=== PATIENT | female | born 1965 | race African-American/Black ===

== ENCOUNTER 2019-06-11 19:37 | Inpatient (IN) | payer MEDICARE, MEDICAID ==
[~2019-06-11] VITALS: Ht 157.5 cm; Wt 109.5 kg
[2019-06-11 20:52] LABS: Basophils # (auto) 0 uL; Basophils % (auto) 0.6 % (0.0-2.0); Eosinophils # (auto) 0.1 uL; Eosinophils % (auto) 1.3 % (0.0-7.0); Hematocrit 35.3 % (36.0-46.0); Hemoglobin 11.5 g/dL (12.2-16.2); Lymphocytes # (auto) 2.1 uL; Lymphocytes % (auto) 28.3 % (10.0-50.0); Mean Corpuscular Hemoglobin 25.6 pg (28.0-32.0); Mean Corpuscular Hgb Conc. 32.7 g/dL (32.0-36.0); Mean Corpuscular Volume 78.5 fL (80.0-100.0); Monocytes # (auto) 0.7 uL; Monocytes % (auto) 9.6 % (0.0-12.0); Neutrophils # (auto) 4.5 uL; Neutrophils % (auto) 60.2 % (37.0-80.0); Nucleated Red Blood Cells % 0.2 %; Platelet Count (auto) 366 10^3/uL (140-450); Red Cell Distribution Width 15.4 % (11.8-14.3); White Blood Cell 7.4 10^3/uL (4.4-10.8)
[2019-06-11 21:10] LABS: Albumin 3.2 g/dL (3.4-5.0); BUN/Creatinine Ratio 12.9; Calcium 8.5 mg/dL (8.5-10.1); Magnesium 2.1 mg/dL (1.6-2.6); Potassium 3.6 mmol/L (3.5-5.1)
[2019-06-11 21:13] LABS: Bilirubin, Total 0.2 mg/dL (0.2-1.0); Total Protein 7.9 g/dL (6.4-8.2)
[2019-06-11] MEDS ORDERED: ACETAMINOPHEN 500 MG TAB PO ONE (23:45)
[2019-06-12] VITALS (7 sets, daily range): BP systolic 116–136; BP diastolic 68–77
[2019-06-12] MEDS ORDERED: LORazepam 2MG/ML-1ML VIAL IV PRN ×2 (00:45→21:45)
[2019-06-12] MEDS ORDERED: ONDANSETRON HCL 4 MG/2 ML VIAL IV PRN (00:45)
[2019-06-12] MEDS ORDERED: TEMAZEPAM 15 MG CAP PO PRN (00:45)
[2019-06-12] MEDS ORDERED: ACETAMINOPHEN 325 MG TAB PO PRN (00:45)
--- NOTE | 2019-06-12 04:00 | NUR ---
MS admit from ER SCOOTER JAIMES admitted to tele/MS after SBAR received. Patient alert/oriented to self at this time, cooperative to care. Patient oriented to Laura Curtis RN primary RN, unit, room, bed, and unit policies regarding patient care and visiting hours. Patient weighed by bedscale and encouraged to call if they need something, patient verbalized understanding, call light within reach, bed alarm on, will continue to monitor Note:
[2019-06-12] MEDS ORDERED: INFLUENZA QUAD 2019-2020 0.5ml SYRG IM ONE (04:45)
[2019-06-12] MEDS: LEVOTHYROXINE SODIUM 50 MCG TAB PO SCH ×2 (05:59→07:00)
--- NOTE | 2019-06-12 08:20 | NUR ---
Opening Note Assumed care of patient. She is A & O x 1-2, patient is oriented to self and that it is daytime. Per H & P this is patient baseline. Patient is cooperative, POC discussed with patient. Patient is comfortable at this time. No s/s of distress at this time. Bed is in lowest locked position call light within reach, bed rails up x2, bed alarm on. Will continue to monitor Q1h and PRN.
[2019-06-12] MEDS: PANTOPRAZOLE 40 MG TAB PO SCH (09:51)
[2019-06-12] MEDS: HCTZ 25 MG TAB PO SCH (09:51)
[2019-06-12] MEDS: ENOXAPARIN SOD 30 MG/0.3 ML SYRINGE SC SCH (09:52)
[2019-06-12] MEDS ORDERED: FUROSEMIDE 20 MG TAB PO SCH (10:00)
[2019-06-12] MEDS ORDERED: cefTRIAXone 1GM/50ML D5W 50 ML IV ONE (10:45)
--- NOTE | 2019-06-12 11:00 | NUR ---
Patient bedding soiled Patient had a moment of incontinence. Oriented patient to call light to use a bed gold, she states "okay I will call." Bedding changed, patient cleaned, tolerated well.
[2019-06-12 12:35] LABS: Free T4 (Free Thyroxine) 0.99 ng/dL (0.89-1.76)
[2019-06-12 12:36] LABS: Folate (Folic Acid) 13.09 ng/mL (5.38-24)
--- NOTE | 2019-06-12 15:00 | NUR ---
Patient removed her IV to the left hand. Patient states "it was bothering me." This RN educated patient that she should not pull out her IV, we will have to place a new one. No bleeding at this time. Dressing applied. Will continue to monitor.
--- NOTE | 2019-06-12 15:30 | NUR ---
Patient bedding soiled. Patient had a moment of incontinence, patient reoriented to call light, this RN asked patient "do you know when you have to pee?", patient states "yes." Will continue to monitor, patient cleaned, bedding changed, patient had a small bowel movement.
[2019-06-12 17:37] LABS: Urine Bacteria FEW /hpf (None Seen); Urine Blood TRACE /uL (Negative); Urine Mucus FEW (None Seen); Urine Specific Gravity 1.012 (1.001-1.035); Urine WBC 23 /hpf (0 - 5)
--- NOTE | 2019-06-12 19:30 | NUR ---
Opening Shift Note Assumed care of patient, awake and alert to self and place. Patient reoriented to year and situation, reinforcement needed. Patient denies pain or shortness of breath at this time. Instructed on plan of care and to call for assistance as needed, reinforcement needed. Bed is locked in lowest position, side rails x 2 are up, call light is within reach, and bed alarm is on.
--- NOTE | 2019-06-12 22:35 | NUR ---
SEIZURE LIKE ACTIVITY While cleaning patient with assistance of RN Nan, patients eyes and head deviated to the right, right arm extended and left arm flexed towards patients chest. Patient was in this position for approximately 30 seconds, no Ativan was needed. Patient returned to baseline following event. Patient is alert and oriented x2. Patient easily reoriented to year and situation, reinforcement needed. Patients vital signs following this event were the following: BP: 140/71, HR: 75, RR: 18, SPO2: 98% on 2L NC, and TEMP: 98.1. Patient is now laying in bed with even and unlabored respirations. No signs/symptoms of distress noted at this time. Bed is locked in lowest position, side rails x2 are up, call light is within reach, bed alarm is on, and seizure precautions are in place.
--- NOTE | 2019-06-12 23:10 | NUR ---
ATTEMPTED BAZAN CATHETER INSERTION Patient assessed and determined to be in need of Bazan catheter. Order obtained from Dr. Arroyo to insert Bazan catheter. Patient educated on catheter and reason for insertion, patient verbalized understanding and all questions and concerns were answered. Attempted to insert Bazan catheter twice with assistance of [employer] [place] and [employer] [place]. Both attempts were failed attempts. After second attempt patient refused Bazan catheter insertion.
[2019-06-12] MEDS: LEVETIRACETAM 500 MG TAB PO SCH (23:28)
[2019-06-13 05:00] VITALS: BP 125/75
[2019-06-13] MEDS: LEVOTHYROXINE SODIUM 50 MCG TAB PO SCH (06:14)
[2019-06-13 08:18] LABS: BUN/Creatinine Ratio 15.2; Calcium 8.5 mg/dL (8.5-10.1); Magnesium 2.2 mg/dL (1.6-2.6); Potassium 3.8 mmol/L (3.5-5.1)
[2019-06-13 08:21] LABS: Bilirubin, Total 0.2 mg/dL (0.2-1.0); Total Protein 7.4 g/dL (6.4-8.2)
[2019-06-13 09:00] VITALS: BP 110/69
[2019-06-13] MEDS ORDERED: cefTRIAXone 1GM/50ML D5W 50 ML IV SCH (09:00)
[2019-06-13 09:13] LABS: Basophils # (auto) 0 uL; Eosinophils # (auto) 0.1 uL; Hemoglobin 11.4 g/dL (12.2-16.2); Monocytes # (auto) 0.5 uL; Neutrophils # (auto) 2.8 uL; Neutrophils % (auto) 51.5 % (37.0-80.0); Red Cell Distribution Width 15.5 % (11.8-14.3)
[2019-06-13 09:15] LABS: Basophils % (auto) 0.7 % (0.0-2.0); Eosinophils % (auto) 1.8 % (0.0-7.0); Hematocrit 33.8 % (36.0-46.0); Lymphocytes % (auto) 36.3 % (10.0-50.0); Mean Corpuscular Hemoglobin 26.2 pg (28.0-32.0); Mean Corpuscular Hgb Conc. 33.7 g/dL (32.0-36.0); Mean Corpuscular Volume 77.8 fL (80.0-100.0); Monocytes % (auto) 9.7 % (0.0-12.0); Nucleated Red Blood Cells % 0.2 %; Platelet Count (auto) 348 10^3/uL (140-450); Red Blood Cells 4.34 10^6/uL (4.0-5.20); White Blood Cell 5.4 10^3/uL (4.4-10.8)
[2019-06-13] MEDS: HCTZ 25 MG TAB PO SCH (10:18)
[2019-06-13] MEDS: LEVETIRACETAM 500 MG TAB PO SCH (10:18)
[2019-06-13] MEDS: PANTOPRAZOLE 40 MG TAB PO SCH (10:18)
[2019-06-13] MEDS: ENOXAPARIN SOD 30 MG/0.3 ML SYRINGE SC SCH (10:19)
--- NOTE | 2019-06-13 11:00 | NUR ---
Dr. Arroyo at bedside. Orders to cancel all MRI, EEG, and recommend to follow up with neurologist outpatient. Patient to be transferred back to [facility] today.
[2019-06-13 13:00] VITALS: BP 104/73
--- NOTE | 2019-06-13 15:09 | NUR ---
D/C Planning Per consult to return to [facility]. Contacted [facility] Ph: ) Fax: ) faxed medical records. Per Christie from [facility] Pt has been accepted to room 56a accepting Dr. Montgomery. Contact [facility] Ph:) spoke to Manny. Per Manny transportation time will be at 19:30 via [facility] [facility]. Addendum: 06/13/19 at 1512 by ALIZE BUENROSTRO Amended: Links added.
--- NOTE | 2019-06-13 16:16 | NUR ---
assessment Patient is a 53 year old female who is cognitively slower. Patient informed me she was at [facility] prior to admission. patient will return to [facility] on discharge. Prior to [facility] patient lived home with her aunt Floyd [phone] and functioned with her assistance. I informed patient she has a right to speak to a social economist regarding all care. I informed patient she has a right to participate in any and all discharge planning. Patient does not have a POA and advanced directive. I have offered patient information on POA and advanced directives. I informed the patient the advantages and benefits of having an Advanced Directive. Patient and Floyd verbalized understanding and agreed to discharge plan back to [facility]. Addendum: 06/13/19 at 1625 by Shanae PEARSON Amended: Links added.
[2019-06-13 17:00] VITALS: BP 123/71
--- NOTE | 2019-06-13 17:52 | NUR ---
Called Aunt Jenny Raphael to notify of return to [facility] No answer and mail box full. Will try again in an hour.
--- NOTE | 2019-06-13 17:56 | NUR ---
Spoke to Dr. Arroyo Confirmed with Dr. Arroyo, patient will be receiving IV antibiotics for 3-4 days, per Dr. Arroyo, "please leave IV in when she goes to [facility]." Will leave per request.
[2019-06-13 18:00] VITALS: BP 125/75
--- NOTE | 2019-06-13 18:06 | NUR ---
Report given to Azalia ARANA at [facility] for transfer Report given, all questions answered to RN satisfaction. Patient is comfortable at this time. Will call again to notify family, Sarah Raphael (Aunt) to notify of transfer.
--- NOTE | 2019-06-13 18:16 | NUR ---
Family notified of patient transfer to [facility]. Spoke to Sarah Raphael (Aunt), patient lives with Aunt. Spoke to her regarding discharge, and care that will be taking place. Family states "tell her I will be there at [facility] at 8:30 PM when she gets there." Will notify patient.
--- NOTE | 2019-06-13 19:10 | NUR ---
Report given to Destini ARANA, NOC shift Patient is to return to [facility], transport is [facility], scheduled for 1929. Patient is aware that she will be going back to [facility]. She agrees. Care endorsed to Destini, paperwork given to Destini ARANA.
--- NOTE | 2019-06-13 19:45 | NUR ---
TRANSFER TO [facility] Discharge paperwork completed by jeimy Jean and verified by this RN. Instructions given to patient as ordered. All questions and concerns addressed by this RN. Patient verbalized understanding. IV left in place as ordered by MD Arroyo. Medication reconciliation form completed and copy given to patient. Report given by jeimy Jean to Azalia ARANA at [facility] at 1806. Patient transported by [facility] with all personal belongings. No distress noted at time of departure.
== END 2019-06-13 19:45 | DRG 101 ==
LOC: EDBD 19:37 → ER 19:39 → OVERFLOW 19:40 → CENTRAL 06-12 02:59
PROVIDERS: ADMIT Nurse Practitioner; ATTEND Internal Medicine
DX: G40.409 Other generalized epilepsy and epileptic syndromes, not intractable, without status epilepticus (principal); N39.0 Urinary tract infection, site not specified; Z68.41 Body mass index [BMI] 40.0-44.9, adult; G93.40 Encephalopathy, unspecified; G35 Multiple sclerosis; E03.9 Hypothyroidism, unspecified; E66.01 Morbid (severe) obesity due to excess calories; F79 Unspecified intellectual disabilities; I10 Essential (primary) hypertension; J32.0 Chronic maxillary sinusitis; Z28.21 Immunization not carried out because of patient refusal; F17.200 Nicotine dependence, unspecified, uncomplicated; Z79.899 Other long term (current) drug therapy; Z82.49 Family history of ischemic heart disease and other diseases of the circulatory system; Z83.3 Family history of diabetes mellitus; K21.9 Gastro-esophageal reflux disease without esophagitis
CPT/HCPCS: 36415; 51702; 70450; 80053; 81001; 82607; 82746; 83036; 83735; 84439; 84443; 85025; 87081; 87086; 93005; 94761; 97163; G0378; J0696

== ENCOUNTER 2019-08-24 23:19 | Emergency (ER) | payer MEDICARE, MEDICAID ==
[~2019-08-24] VITALS: Ht 170.2 cm; Wt 47.6 kg
[2019-08-25 00:15] LABS: Eosinophils # (auto) 0.1 uL; Monocytes # (auto) 0.4 uL; Neutrophils # (auto) 2.8 uL; White Blood Cell 5.8 10^3/uL (4.4-10.8)
[2019-08-25 00:17] LABS: Basophils # (auto) 0.1 uL; Basophils % (auto) 0.9 % (0.0-2.0); Eosinophils % (auto) 1.6 % (0.0-7.0); Hematocrit 40.2 % (36.0-46.0); Hemoglobin 12.5 g/dL (12.2-16.2); Lymphocytes # (auto) 2.4 uL; Lymphocytes % (auto) 42.2 % (10.0-50.0); Mean Corpuscular Hemoglobin 24.4 pg (28.0-32.0); Mean Corpuscular Hgb Conc. 31.2 g/dL (32.0-36.0); Monocytes % (auto) 6.9 % (0.0-12.0); Neutrophils % (auto) 48.4 % (37.0-80.0); Platelet Count (auto) 321 10^3/uL (140-450); Red Blood Cells 5.15 10^6/uL (4.0-5.20); Red Cell Distribution Width 18.9 % (11.8-14.3)
[2019-08-25 00:31] LABS: Albumin 3.3 g/dL (3.4-5.0); BUN/Creatinine Ratio 12.9; Calcium 9.7 mg/dL (8.5-10.1)
[2019-08-25 00:34] LABS: Bilirubin, Total 0.3 mg/dL (0.2-1.0); Total Protein 8.3 g/dL (6.4-8.2)
[2019-08-25] MEDS ORDERED: LEVETIRACETAM 500 MG TAB PO ONE (04:30)
[2019-08-25 07:05] VITALS: BP 139/55
== END 2019-08-25 11:32 | disposition home or self-care (01) ==
LOC: ER 23:20
DX: G40.909 Epilepsy, unspecified, not intractable, without status epilepticus (principal); F41.9 Anxiety disorder, unspecified; I10 Essential (primary) hypertension; Z76.0 Encounter for issue of repeat prescription
CPT/HCPCS: 36415; 70450; 80053; 82542; 85025

== ENCOUNTER 2019-09-27 16:50 | Inpatient (IN) | payer MEDICARE, MEDICAID ==
[~2019-09-27] VITALS: Ht 170.2 cm; Wt 105.3 kg
[2019-09-27 18:49] LABS: Basophils # (auto) 0.1 uL; Eosinophils # (auto) 0.1 uL; White Blood Cell 7.4 10^3/uL (4.4-10.8)
[2019-09-27 18:51] LABS: Basophils % (auto) 1.4 % (0.0-2.0); Eosinophils % (auto) 0.9 % (0.0-7.0); Hematocrit 38.9 % (36.0-46.0); Hemoglobin 12.5 g/dL (12.2-16.2); Lymphocytes # (auto) 2.6 uL; Lymphocytes % (auto) 35.4 % (10.0-50.0); Mean Corpuscular Hemoglobin 25.3 pg (28.0-32.0); Mean Corpuscular Volume 78.9 fL (80.0-100.0); Monocytes # (auto) 0.5 uL; Monocytes % (auto) 7.2 % (0.0-12.0); Neutrophils # (auto) 4.1 uL; Neutrophils % (auto) 55.1 % (37.0-80.0); Platelet Count (auto) 299 10^3/uL (140-450); Red Blood Cells 4.94 10^6/uL (4.0-5.20); Red Cell Distribution Width 18.5 % (11.8-14.3)
[2019-09-27 19:02] LABS: Alanine Aminotransferase 25 U/L (13-56); Anion Gap 5 (5-15); Aspartate Aminotransferase 16 U/L (15-37); Blood Alcohol < 3.0 mg/dL (0-5); Blood Urea Nitrogen 19 mg/dL (7-18); Calcium 8.6 mg/dL (8.5-10.1); Carbon Dioxide 28 mmol/L (21-32); Chloride 108 mmol/L (98-107); GFR African American 79 mL/min; GFR Non-African American 65 mL/min; Glucose 83 mg/dL (74-106); Potassium 3.5 mmol/L (3.5-5.1); Sodium 141 mmol/L (136-145)
[2019-09-27 19:07] LABS: Alkaline Phosphatase 80 U/L (45-117); Bilirubin, Total 0.2 mg/dL (0.2-1.0); Total Protein 7.9 g/dL (6.4-8.2)
[2019-09-27 23:42] LABS: Urine Amorphous Crystal FEW /hpf (None Seen); Urine Bacteria FEW /hpf (None Seen); Urine Blood TRACE /uL (Negative); Urine Specific Gravity 1.028 (1.001-1.035); Urine WBC 8 /hpf (0 - 5)
[2019-09-27 23:56] LABS: Cannabinoid Screen, Urine NEGATIVE (NEGATIVE)
[2019-09-27 23:58] LABS: Alcohol, Urine < 3.0 mg/dL (0-5); Amphetamine Screen, Urine NEGATIVE (NEGATIVE); Barbiturate Scree,Urine NEGATIVE (NEGATIVE); Benzodiazephine Screen, Urine NEGATIVE (NEGATIVE); Cocaine Screen, Urine NEGATIVE (NEGATIVE); Opiate Scree,Urine NEGATIVE (NEGATIVE); Phencyclidine Screen, Urine NEGATIVE (NEGATIVE)
[2019-09-28] MEDS ORDERED: ONDANSETRON HCL 4 MG/2 ML VIAL IV PRN (00:45)
[2019-09-28] MEDS ORDERED: TEMAZEPAM 15 MG CAP PO PRN (00:45)
[2019-09-28] MEDS ORDERED: cefTRIAXone 1GM/50ML D5W 50 ML IV ONE (00:45)
[2019-09-28] MEDS ORDERED: ACETAMINOPHEN 325 MG TAB PO PRN (00:45)
[2019-09-28] MEDS: LEVOTHYROXINE SODIUM 50 MCG TAB PO SCH (08:00)
[2019-09-28] MEDS: levETIRAcetam 500 MG TAB PO SCH ×2 (09:56→21:25)
[2019-09-28] MEDS: FAMOTIDINE 20 MG TAB PO SCH ×2 (09:59→21:25)
[2019-09-28] MEDS: HCTZ 25 MG TAB PO SCH (09:59)
[2019-09-28] MEDS ORDERED: FUROSEMIDE 20 MG TAB PO SCH (10:00)
[2019-09-28 13:00] VITALS: BP 134/75
[2019-09-28 14:25] LABS: Free T3 2.75 pg/mL (2.3-4.2); Free T4 (Free Thyroxine) 1.36 ng/dL (0.89-1.76)
[2019-09-28] MEDS: metroNIDAZOLE 500MG/100ML 100 ML IV SCH ×2 (15:40→21:25)
[2019-09-28 17:14] VITALS: BP 122/61
[2019-09-28 22:00] VITALS: BP 144/66
[2019-09-29] VITALS (7 sets, daily range): BP systolic 109–135; BP diastolic 69–75
[2019-09-29] MEDS: cefTRIAXone 1GM/50ML D5W 50 ML IV SCH (01:00)
[2019-09-29] MEDS: metroNIDAZOLE 500MG/100ML 100 ML IV SCH ×3 (05:28→21:28)
[2019-09-29] MEDS: LEVOTHYROXINE SODIUM 50 MCG TAB PO SCH (05:29)
[2019-09-29 06:16] LABS: Basophils # (auto) 0 uL; Eosinophils # (auto) 0.1 uL; Hemoglobin 12.6 g/dL (12.2-16.2); Lymphocytes # (auto) 1.7 uL; Mean Corpuscular Hemoglobin 25.9 pg (28.0-32.0); Monocytes # (auto) 0.4 uL; White Blood Cell 4.7 10^3/uL (4.4-10.8)
[2019-09-29 06:18] LABS: Basophils % (auto) 0.6 % (0.0-2.0); Eosinophils % (auto) 1.7 % (0.0-7.0); Lymphocytes % (auto) 36.8 % (10.0-50.0); Mean Corpuscular Hgb Conc. 33.2 g/dL (32.0-36.0); Mean Corpuscular Volume 78.2 fL (80.0-100.0); Monocytes % (auto) 8.7 % (0.0-12.0); Neutrophils # (auto) 2.5 uL; Neutrophils % (auto) 52.2 % (37.0-80.0); Platelet Count (auto) 265 10^3/uL (140-450); Red Blood Cells 4.85 10^6/uL (4.0-5.20); Red Cell Distribution Width 18.3 % (11.8-14.3)
[2019-09-29 06:36] LABS: Calcium 8.6 mg/dL (8.5-10.1); Potassium 3.2 mmol/L (3.5-5.1)
[2019-09-29] MEDS: FAMOTIDINE 20 MG TAB PO SCH ×2 (10:22→21:27)
[2019-09-29] MEDS: levETIRAcetam 500 MG TAB PO SCH ×2 (10:22→21:27)
[2019-09-29] MEDS: HCTZ 25 MG TAB PO SCH (10:23)
[2019-09-29] MEDS ORDERED: POTASSIUM CHL 20 Meq TABLET PO ONE (13:30)
[2019-09-30] MEDS: cefTRIAXone 1GM/50ML D5W 50 ML IV SCH (02:20)
[2019-09-30 05:00] VITALS: BP 124/76
[2019-09-30] MEDS: metroNIDAZOLE 500MG/100ML 100 ML IV SCH ×3 (05:45→21:37)
[2019-09-30] MEDS: LEVOTHYROXINE SODIUM 50 MCG TAB PO SCH (05:46)
[2019-09-30 08:00] VITALS: BP 129/77
[2019-09-30 09:00] VITALS: BP 129/77
[2019-09-30] MEDS: levETIRAcetam 500 MG TAB PO SCH ×2 (10:13→21:37)
[2019-09-30] MEDS: HCTZ 25 MG TAB PO SCH (10:13)
[2019-09-30] MEDS: FAMOTIDINE 20 MG TAB PO SCH ×2 (10:13→21:37)
[2019-09-30 13:00] VITALS: BP 124/70
[2019-09-30 17:00] VITALS: BP 144/72
[2019-09-30 21:41] VITALS: BP 108/70
[2019-10-01] MEDS: cefTRIAXone 1GM/50ML D5W 50 ML IV SCH (01:36)
[2019-10-01 05:12] VITALS: BP 116/69
[2019-10-01] MEDS: metroNIDAZOLE 500MG/100ML 100 ML IV SCH ×2 (05:45→14:08)
[2019-10-01] MEDS: LEVOTHYROXINE SODIUM 50 MCG TAB PO SCH (05:47)
[2019-10-01 08:00] VITALS: BP 109/52
[2019-10-01] MEDS: FAMOTIDINE 20 MG TAB PO SCH (09:55)
[2019-10-01] MEDS: levETIRAcetam 500 MG TAB PO SCH (09:57)
[2019-10-01] MEDS: HCTZ 25 MG TAB PO SCH (09:57)
[2019-10-01 12:00] VITALS: BP 99/65
[2019-10-01 12:19] VITALS: BP 99/65
[2019-10-01 12:35] VITALS: BP 99/65
== END 2019-10-01 17:42 | disposition home health service (06) | DRG 72 ==
LOC: EDBD 16:50 → ER 16:50 → OVERFLOW 16:51 → WEST WING 09-28 11:02
PROVIDERS: ADMIT Nurse Practitioner; ATTEND Internal Medicine
DX: G93.41 Metabolic encephalopathy (principal); E86.0 Dehydration; K62.89 Other specified diseases of anus and rectum; K59.00 Constipation, unspecified; I10 Essential (primary) hypertension; E03.9 Hypothyroidism, unspecified; E66.01 Morbid (severe) obesity due to excess calories; K80.20 Calculus of gallbladder without cholecystitis without obstruction; R19.7 Diarrhea, unspecified
CPT/HCPCS: 36415; 51702; 70450; 71045; 74176; 80048; 80053; 80307; 80320; 81001; 84439; 84443; 84481; 84484; 85025; 93005; 96365; 97116; 97163; 97530; G0378; J0696; J3490

== ENCOUNTER 2023-12-25 01:10 | Emergency (ER) | payer MEDICARE, MEDICAID ==
[~2023-12-25] VITALS: Ht 167.6 cm; Wt 95.5 kg
[2023-12-25 01:30] VITALS: O2SAT 96
[2023-12-25 03:01] LABS: Basophils # (auto) 0 10 ^3/uL (0-0.2); Basophils % (auto) 0.6 % (0.0-2.0); Eosinophils # (auto) 0 10 ^3/uL (0-0.8); Eosinophils % (auto) 0.3 % (0.0-7.0); Hematocrit 45.7 % (36.0-46.0); Hemoglobin 15.2 g/dL (12.2-16.2); Lymphocytes # (auto) 0.8 10 ^3/uL (0.4-5.4); Lymphocytes % (auto) 15.3 % (10.0-50.0); Mean Corpuscular Hemoglobin 29.1 pg (28.0-32.0); Mean Corpuscular Hgb Conc. 33.2 g/dL (32.0-36.0); Mean Corpuscular Volume 87.7 fL (80.0-100.0); Monocytes # (auto) 0.4 10 ^3/uL (0-1.3); Monocytes % (auto) 7.2 % (0.0-12.0); Neutrophils # (auto) 3.9 10 ^3/uL (1.6-8.6); Neutrophils % (auto) 76.6 % (37.0-80.0); Nucleated Red Blood Cells % 0.1 %; Red Blood Cells 5.22 10^6/uL (4.0-5.20); Red Cell Distribution Width 14.6 % (11.8-14.3); White Blood Cell 5.1 10^3/uL (4.4-10.8)
[2023-12-25 03:09] LABS: Chloride 109 mmol/L (98-107); Potassium 3.8 mmol/L (3.5-5.1); Sodium 141 mmol/L (136-145)
[2023-12-25 03:10] LABS: Anion Gap 7 (5-15); Carbon Dioxide 25 mmol/L (20-30)
[2023-12-25 03:11] LABS: Calcium 9.8 mg/dL (8.7-10.4)
[2023-12-25 03:15] LABS: Glucose 102 mg/dL (74-106)
[2023-12-25 03:16] LABS: BUN/Creatinine Ratio 9.6 (10.0-20.0); Blood Urea Nitrogen 9 mg/dL (9-23)
[2023-12-25 03:40] LABS: Urine Bacteria None Seen /hpf (None Seen)
[2023-12-25 04:20] LABS: Urine Blood 1+ /uL (Negative); Urine Clarity Clear (Clear); Urine Color Yellow (Yellow); Urine Mucus FEW (None Seen); Urine Protein, UAD TRACE (Negative); Urine Specific Gravity 1.029 (1.001-1.035); Urine Urobilinogen Normal (Negative); Urine WBC 1 /hpf (0 - 5)
[2023-12-25 06:55] VITALS: TEMP 98.5
[2023-12-25 07:30] VITALS: PULSE 79; RESP 16; O2SAT 95
[2023-12-25 12:00] VITALS: BP 144/83; PULSE 77; RESP 14; O2SAT 95
== END 2023-12-25 13:12 | disposition home or self-care (01) ==
LOC: ER 01:10 → EDBD 01:10 → EDSEX 01:10 → ER 13:11
DX: R06.00 Dyspnea, unspecified (principal); I10 Essential (primary) hypertension; E03.9 Hypothyroidism, unspecified; R07.89 Other chest pain
CPT/HCPCS: 36415; 71045; 80048; 81001; 83880; 84484; 85025; 93005

== ENCOUNTER 2024-11-17 15:21 | Inpatient (IN) | payer MEDICARE, MEDICAID ==
[~2024-11-17] VITALS: Ht 167.6 cm; Wt 58.0 kg
[2024-11-17] MEDS: cefTRIAXone 1GM/50ML D5W 50 ML IV ONE (15:30)
--- NOTE | 2024-11-17 15:32 | ED.PDOC ---
History of Present Illness HPI Comments 59-year-old female brought by paramedics because of bilateral lower extremity leg pain along with wounds on the heel for the past few weeks. She does have a history of MS hypotension. She is bed ridden. Nonverbal. The caregiver states that she has been getting worse for the past few weeks not tolerating diet. She was tachycardic in the 130s in the field. She was given fluids prior to arrival. Chief Complaint: Wound Check Time Seen by MD: 15:25 Primary Care Provider: MILLICENT Reviewed Notes: Nurses Notes, Medications, Allergies Allergies: Coded Allergies: NO KNOWN ALLERGIES (Unverified , 07/30/19) Home Meds Unable to Obtain Active Prescriptions or Reported Meds Information Source: Emergency Med Personnel Mode of Arrival: EMS Severity: Moderate Timing: Days Duration: Since onset Past Medical History PAST MEDICAL HISTORY: HTN, Seizures, Thyroid Surgical History: LOG INSPECTOR History: No Pertinent LOG INSPECTOR History Family History Family History: Reviewed,noncontributory to illness Social History Smoker: Non-Smoker Alcohol: Denies ETOH Use Drugs: Denies Drug Use Lives In: Snf Constitutional: reports: fever; denies: chills, diaphoresis, fatigue, malaise, sweats, weakness, others EENTM: denies: blurred vision, double vision, ear bleeding, ear discharge, ear drainage, ear pain, ear ringing, eye pain, eye redness, hearing loss, mouth pain, mouth swelling, nasal discharge, nose bleeding, nose congestion, nose pain, photophobia, tearing, throat pain, throat swelling, voice changes, others Respiratory: denies: cough, hemoptysis, orthopnea, SOB at rest, shortness of breath, SOB with excertion, stridor, wheezing, others Cardiovascular: denies: chest pain, dizzy spells, diaphoresis, Dyspnea on exertion, edema, irregular heart beat, left arm pain, lightheadedness, palpitations, PND, syncope, others Gastrointestinal: denies: abdomen distended, abdominal pain, blood streaked bowels, constipated, diarrhea, dysphagia, difficulty swallowing, hematemesis, melena, nausea, poor appetite, poor fluid intake, rectal bleeding, rectal pain, vomiting, others Genitourinary: denies: abnormal vagina bleeding, burning, dyspareunia, dysuria, flank pain, frequency, hematuria, incontinence, pain, , vagina discharge, urgency, others Neurological: denies: dizziness, fainting, headache, left sided numbness, left sided weakness, numbness, paresthesia, pre-existing deficit, right sided numbness, right sided weakness, seizure, speech problems, tingling, tremors, w eakness, others Musculoskeletal: denies: back pain, gout, joint pain, joint swelling, muscle pain, muscle stiffness, neck pain, others Integumetry: reports: lesions (heal); denies: bruises, change in color, change in hair/nails, dryness, laceration, lumps, rash, wounds, others Allergic/Immunocompromised: denies: Difficulty Healing, Frequent Infections, Hives, Itching, others Hematologic/Lymphatic: denies: anemia, blood clots, easy bleeding, easy bruising, swollen glands, others Endocrine: denies: excessive hunger, excessive sweating, excessive thirst, excessive urination, flushing, intolerance to cold, intolerance to heat, unexpl ained weight gain, unexplained weight loss, others Psychiatric: denies: anxiety, bipolar disorder, depression, hopeless, panic disorder, schizophrenia, sleepless, suicidal, others Physical Exam General Appearance: Moderate Distress HEENT: Normal ENT Inspection, Pharynx Normal, TMs Normal Neck: Full Range of Motion, Non-Tender, Normal, Normal Inspection Respiratory: Other (Coarse breath sounds) Cardiovascular: Tachycardia Breast Exam: Deferred Gastrointestinal: No Organomegaly, Non Tender, No Pulsatile Mass, Normal Bowel Sounds, Soft Genitalia: Deferred Pelvic: Deferred Rectal: Deferred Extremities: No calf tenderness, No pedal edema Musculoskeletal : Apperance: Normal Neurologic: Disoriented, Motor Weakness Cerebellar Function: NOT DONE Reflexes: NOT DONE Skin: Pallor, Wounds (heal) Peripheral Pulses: 3+ Radial (R), 3+ Radial (L) Lymphatic: No Adenopathy Was a procedure done? Was a procedure done?: No Differential Dx Considerations may include: Anemia Electrolyte imbalance X-Ray, Labs, Meds, VS Vital Signs Date Time Temp Pulse Resp B/P (MAP) Pulse Ox O2 Delivery O2 Flow Rate FiO2 11/17/24 16:45 98 16 97 Room Air* 0 21 11/17/24 16:12 96 11/17/24 16:00 100.2 98 45 141/81 (101) 97 100.2 11/17/24 15:33 100 11/17/24 15:27 98.4 108 24 152/79 (103) 97 98.4 Lab Test 11/17/24 16:45 11/17/24 16:37 11/17/24 15:40 Range/Units Troponin I High Sensitivity 9 8 </=34 ng/L Urine Color Light-yellow Yellow Urine Clarity Turbid H Clear Urine pH 6.5 5.0-9.0 Urine Specific [place] 1.013 1.001-1.035 Urine Protein Negative Negative Urine Ketones Negative Negative Urine Blood Trace H Negative /uL Urine Nitrite Negative Negative Urine Bilirubin Negative Negative Urine Urobilinogen Normal Negative mg/dL Urine Leukocyte Esterase Negative Negative /uL Urine RBC 9 0 - 4 /hpf Urine Microscopic WBC 2 0-5 /HPF Urine Squamous Epithelial Cells Few <5 /hpf Urine Bacteria Few H None Seen /hpf Urine Mucus Few None Seen Urine Glucose Normal Normal mg/dL White Blood Count 3.9 L 4.4-10.8 10^3/uL Red Blood Count 4.86 4.0-5.20 10^6/uL Hemoglobin 14.3 12.2-16.2 g/dL Hematocrit 43.8 36.0-46.0 % Mean Corpuscular Volume 90.0 80.0-100.0 fL Mean Corpuscular Hemoglobin 29.3 28.0-32.0 pg Mean Corpuscular Hemoglobin Concent 32.6 32.0-36.0 g/dL Red Cell Distribution Width 14.7 H 11.8-14.3 % Platelet Count 231 140-450 10^3/uL Mean Platelet Volume 6.9 6.9-10.8 fL Neutrophils (%) (Auto) 52.7 37.0-80.0 % Lymphocytes (%) (Auto) 34.2 10.0-50.0 % Monocytes (%) (Auto) 12.4 H 0.0-12.0 % Eosinophils (%) (Auto) 0.4 0.0-7.0 % Basophils (%) (Auto) 0.3 0.0-2.0 % Neutrophils # (Auto) 2.0 1.6-8.6 10 ^3/uL Lymphocytes # (Auto) 1.3 0.4-5.4 10 ^3/uL Monocytes # (Auto) 0.5 0-1.3 10 ^3/uL Eosinophils # (Auto) 0 0-0.8 10 ^3/uL Basophils # (Auto) 0 0-0.2 10 ^3/uL Nucleated Red Blood Cells 0.2 % Sodium Level 140 136-145 mmol/L Potassium Level 3.7 3.5-5.1 mmol/L Chloride Level 106 98-107 mmol/L Carbon Dioxide Level 26 20-31 mmol/L Anion Gap 8 5-15 Blood Urea Nitrogen 6 L 9-23 mg/dL Creatinine 0.59 0.550-1.02 mg/dL Glomerular Filtration Rate Calc 104 >90 mL/min BUN/Creatinine Ratio 10.2 10.0-20.0 Serum Glucose 93 74-106 mg/dL Calcium Level 8.8 8.7-10.4 mg/dL Current Medications Medications (Trade) Dose Ordered Sig/Brian Route Start Time Stop Time Status Last Admin Sodium Chloride 1,000 ml @ 1,000 mls/hr Q1H ONCE IV 11/17/24 15:30 11/17/24 16:29 DC 11/17/24 16:04 Ceftriaxone Sodium 50 ml @ 100 mls/hr ONCE ONCE IV 11/17/24 15:30 11/17/24 15:59 DC 11/17/24 15:30 Time of 1ST Reevaluation: 15:31 Reevaluation 1ST: Unchanged Patient Education/Counseling: Pt Unresponsive Family Education/Counseling: No Family Present Departure 1 Departure Time of Disposition: 15:31 Impression: Primary Impression: Metabolic encephalopathy Additional Impression: Cellulitis Qualified Codes: L03.116 - Cellulitis of left lower limb Disposition: ADMITTED INPATIENT Admit to: Med Surg Condition: Guarded e-Prescriptions Unable to Obtain Active Prescriptions or Reported Meds Critical Care Note Critical Care Time?: No Stability Stability form required: No Heart Score Heart Score: Heart Score Response (Comments) Value History Slightly Suspicious 0 EKG Normal 0 Age 45-64 1 Risk Factors 1 or 2 risk factors 1 Troponin Normal limit 0 Total 2 KARTHIK SHEIKH MD Nov 17, 2024 15:32
[2024-11-17 15:53] LABS: Basophils # (auto) 0 10 ^3/uL (0-0.2); Basophils % (auto) 0.3 % (0.0-2.0); Eosinophils # (auto) 0 10 ^3/uL (0-0.8); Eosinophils % (auto) 0.4 % (0.0-7.0); Hematocrit 43.8 % (36.0-46.0); Hemoglobin 14.3 g/dL (12.2-16.2); Lymphocytes # (auto) 1.3 10 ^3/uL (0.4-5.4); Lymphocytes % (auto) 34.2 % (10.0-50.0); Mean Corpuscular Hemoglobin 29.3 pg (28.0-32.0); Mean Corpuscular Hgb Conc. 32.6 g/dL (32.0-36.0); Monocytes # (auto) 0.5 10 ^3/uL (0-1.3); Monocytes % (auto) 12.4 % (0.0-12.0); Neutrophils % (auto) 52.7 % (37.0-80.0); Nucleated Red Blood Cells % 0.2 %; Platelet Count (auto) 231 10^3/uL (140-450); Red Blood Cells 4.86 10^6/uL (4.0-5.20); Red Cell Distribution Width 14.7 % (11.8-14.3); White Blood Cell 3.9 10^3/uL (4.4-10.8)
[2024-11-17] MEDS: SODIUM CHLORIDE 0.9% 1,000 ML IV ONE (16:04)
[2024-11-17 16:07] LABS: Anion Gap 8 (5-15); Carbon Dioxide 26 mmol/L (20-31); Chloride 106 mmol/L (98-107); Potassium 3.7 mmol/L (3.5-5.1); Sodium 140 mmol/L (136-145)
[2024-11-17 16:08] LABS: Calcium 8.8 mg/dL (8.7-10.4)
[2024-11-17 16:13] LABS: BUN/Creatinine Ratio 10.2 (10.0-20.0); Glucose 93 mg/dL (74-106)
[2024-11-17 16:24] LABS: Blood Urea Nitrogen 6 mg/dL (9-23)
[2024-11-17 16:45] VITALS: PULSE 98; RESP 16; O2SAT 97
[2024-11-17 16:54] LABS: Urine Bacteria FEW /hpf (None Seen); Urine Blood TRACE /uL (Negative); Urine Clarity Turbid (Clear); Urine Color Light-Yellow (Yellow); Urine Mucus FEW (None Seen); Urine Protein, UAD Negative (Negative); Urine Specific Gravity 1.013 (1.001-1.035); Urine Squamous Epithelial Cell FEW /hpf (<5); Urine Urobilinogen Normal (Negative); Urine WBC 2 /HPF (0-5); Urine pH 6.5 (5.0-9.0)
--- NOTE | 2024-11-17 17:26 | DVH ---
CT HEAD WITHOUT CONTRAST INDICATION: altered COMPARISON: HEAD WITHOUT CONTRAST on DOS: 09/27/19, HEAD WITHOUT CONTRAST on DOS: 08/25/19 TECHNIQUE: CT of the head without intravenous contrast. RADIATION DOSE: CTDIvol: 55.63 mGy, DLP: 985.12 mGy*cm FINDINGS: There is no evidence of intracranial hemorrhage, acute infarct, extra-axial collection, mass effect, midline shift, herniation or hydrocephalus. Old lacunar infarcts/chronic white matter microvascular ischemic changes. Moderate ventricular and sulcal enlargement related to advanced cerebral volume los s in the supratentorial and infratentorial brain. Visualized paranasal sinuses and mastoid air cells are clear. Soft tissues are unremarkable. Old fractures of bilateral medial orbital starks ; Osseus st ructures are otherwise unremarkable. osseous structures are unremarkable. IMPRESSION: No definite acute intracranial abnormality identified. Considerable chronic white matter microvascula r ischemic changes. Advanced cerebral volume loss in supratentorial and infratentorial brain.
--- NOTE | 2024-11-17 17:27 | DVH ---
CHEST RADIOGRAPH Indication: sob Technique: Single frontal view of the chest was obtained COMPARISON: XY CHEST PORTABLE on DOS: 12/25/23 FINDINGS: Lines and Tubes: None Lungs: Clear Pleura: No effusion. No pneumothorax. Cardiomediastinal contours: Unremarkable Bones: Unremarkable IMPRESSION: No abnormality demonstrated.
[2024-11-17 19:59] VITALS: PULSE 75; RESP 10; O2SAT 98
[2024-11-17] MEDS ORDERED: ACETAMINOPHEN 325 MG TAB PO PRN (20:30)
[2024-11-17] MEDS ORDERED: ONDANSETRON HCL 4 MG/2 ML VIAL IV PRN (20:30)
--- NOTE | 2024-11-17 23:56 | ECG ---
[facility] Test Date: 2024-11-17 Test Time: 15:33:13 Pat Name: SCOOTER JAIMES Department: ED Room: 0212 Gender: F Household Cook: shima : 1965 Requested By: KARTHIK SHEIKH Order Number: [id number] Reading MD: Rupesh Jerez Measurements Intervals [place] Rate: 100 P: 0 OK: 123 QRS: 95 QRSD: 92 T: 263 QT: 434 QTc: 560 Interpretive Statements Sinus tachycardia Borderline right axis deviation Low voltage, extremity and precordial leads Anteroseptal infarct, old Nonspecific T abnormalities, lateral leads Prolonged QT interval Baseline wander in lead(s) I,II,aVR Electronically Signed On 11-21-2024 20:52:32 PDT by Rupesh Jerez Please click the below link to view image of tracing.
[2024-11-18] VITALS (8 sets, daily range): BP systolic 136–160; BP diastolic 76–98; PULSE 56–100; RESP 17–96; TEMP 97.1–99.7; O2SAT 81–100
--- NOTE | 2024-11-18 02:53 | DVHHP2 ---
History of Present Illness Reason for Visit: Multiple wounds History of Present Illness 59-year-old female presents for evaluation of multiple wounds. Patient was brought in for evaluation of multiple wounds to bilateral lower extremities and on the sacral area. Patient with history of multiple sclerosis is bed ridden and nonverbal. Also there is reports of patient with decreased oral intake over the past one-week. Past Medical History Seizures, hypertension, thyroid, multiple sclerosis Past Surgical History Family History Unknown Review of Systems Review of Systems Unable to complete review of systems due to the patient's altered mental status. Allergies: Coded Allergies: NO KNOWN ALLERGIES (Unverified , 07/30/19) Medications Current Medications Medications Dose Ordered Sig/Brian Route Start Time Stop Time Status Last Admin Dose Admin Levetiracetam 1,000 mg BID PO 11/17/24 22:00 Levothyroxine Sodium 125 mcg QAM@0600 PO 11/18/24 06:00 Nifedipine 30 mg DAILY PO 11/18/24 10:00 Docusate Sodium 100 mg BID PO 11/17/24 22:00 Ceftriaxone Sodium 50 ml @ 100 mls/hr DAILY@09 IV 11/18/24 09:00 Ondansetron HCl 4 mg Q4HP PRN IV 11/17/24 20:30 Enoxaparin Sodium 40 mg DAILY SC 11/18/24 10:00 Acetaminophen 650 mg Q6HP PRN PO 11/17/24 20:30 Exam Vital Signs Vital Signs Date Time Temp Pulse Resp B/P (MAP) Pulse Ox O2 Delivery O2 Flow Rate FiO2 11/18/24 00:23 76 18 146/80 (102) 11/17/24 21:46 97 11/17/24 19:59 98.6 98.6 11/17/24 19:59 Room Air* 0 21 Exam Gen: 59-year-old female in no apparent distress. Skin: Warm, dry, normal color and texture, pressure ulcers she right dorsal foot and right medial thigh, sacral stage III pressure ulcer HEENT: Normocephalic atraumatic, mucous membranes moist and pink. Neck: Cervical and supraclavicular nodes normal without enlargement, trachea is midline, thyroid gland is normal without masses. Pulmonary: Clear to auscultation and percussion bilaterally. Cardiac: Regular rate and rhythm. No murmur Abdomen: Soft, nontender, nondistended, bowel sounds present all 4 quadrants, no guarding, no rigidity, no organomegaly. Extremities: No cyanosis, clubbing, no edema Neuro: Patient noted with multiple contractures in upper and lower extremities Labs/Xrays ORDERING PHYSICIAN: KARTHIK SHEIKH MD PROCEDURE(s): CXRP - CHEST PORTABLE REASON: sob ORDER NUMBER(s): [id number], ACCESSION NUMBER(s): [id number] CHEST RADIOGRAPH Indication: sob Technique: Single frontal view of the chest was obtained COMPARISON: XY CHEST PORTABLE on DOS: 12/25/23 FINDINGS: Lines and Tubes: None Lungs: Clear Pleura: No effusion. No pneumothorax. Cardiomediastinal contours: Unremarkable Bones: Unremarkable IMPRESSION: No abnormality demonstrated. RING PHYSICIAN: KARTHIK SHEIKH MD PROCEDURE(s): HWOCT - HEAD WITHOUT CONTRAST REASON: altered ORDER NUMBER(s): [id number], ACCESSION NUMBER(s): [id number] CT HEAD WITHOUT CONTRAST INDICATION: altered COMPARISON: HEAD WITHOUT CONTRAST on DOS: 09/27/19, HEAD WITHOUT CONTRAST on DOS: 08/25/19 TECHNIQUE: CT of the head without intravenous contrast. RADIATION DOSE: CTDIvol: 55.63 mGy, DLP: 985.12 mGy*cm FINDINGS: There is no evidence of intracranial hemorrhage, acute infarct, extra-axial collection, mass effect, midline shift, herniation or hydrocephalus. Old lacunar infarcts/chronic white matter microvascular ischemic changes. Moderate ventricular and sulcal enlargement related to advanced cerebral volume loss in the supratentorial and infratentorial brain. Visualized paranasal sinuses and mastoid air cells are clear. Soft tissues are unremarkable. Old fractures of bilateral medial orbital starks ; Osseus structures are otherwise unremarkable. osseous structures are unremarkable. IMPRESSION: No definite acute intracranial abnormality identified. Considerable chronic white matter microvascular ischemic changes. Advanced cerebral volume loss in supratentorial and infratentorial brain. Labs Test 11/17/24 21:37 11/17/24 16:45 11/17/24 16:37 11/17/24 15:40 Range/Units Lactic Acid Level 1.0 0.4-2.0 mmol/L Troponin I High Sensitivity 9 </=34 ng/L Thyroid Stimulating Hormone (TSH) 0.01 L 0.55-4.78 uIU/mL Urine Color Light-yellow Yellow Urine Clarity Turbid H Clear Urine pH 6.5 5.0-9.0 Urine Specific [place] 1.013 1.001-1.035 Urine Protein Negative Negative Urine Ketones Negative Negative Urine Blood Trace H Negative /uL Urine Nitrite Negative Negative Urine Bilirubin Negative Negative Urine Urobilinogen Normal Negative mg/dL Urine Leukocyte Esterase Negative Negative /uL Urine RBC 9 0 - 4 /hpf Urine Microscopic WBC 2 0-5 /HPF Urine Squamous Epithelial Cells Few <5 /hpf Urine Bacteria Few H None Seen /hpf Urine Mucus Few None Seen Urine Glucose Normal Normal mg/dL White Blood Count 3.9 L 4.4-10.8 10^3/uL Red Blood Count 4.86 4.0-5.20 10^6/uL Hemoglobin 14.3 12.2-16.2 g/dL Hematocrit 43.8 36.0-46.0 % Mean Corpuscular Volume 90.0 80.0-100.0 fL Mean Corpuscular Hemoglobin 29.3 28.0-32.0 pg Mean Corpuscular Hemoglobin Concent 32.6 32.0-36.0 g/dL Red Cell Distribution Width 14.7 H 11.8-14.3 % Platelet Count 231 140-450 10^3/uL Mean Platelet Volume 6.9 6.9-10.8 fL Neutrophils (%) (Auto) 52.7 37.0-80.0 % Lymphocytes (%) (Auto) 34.2 10.0-50.0 % Monocytes (%) (Auto) 12.4 H 0.0-12.0 % Eosinophils (%) (Auto) 0.4 0.0-7.0 % Basophils (%) (Auto) 0.3 0.0-2.0 % Neutrophils # (Auto) 2.0 1.6-8.6 10 ^3/uL Lymphocytes # (Auto) 1.3 0.4-5.4 10 ^3/uL Monocytes # (Auto) 0.5 0-1.3 10 ^3/uL Eosinophils # (Auto) 0 0-0.8 10 ^3/uL Basophils # (Auto) 0 0-0.2 10 ^3/uL Nucleated Red Blood Cells 0.2 % Sodium Level 140 136-145 mmol/L Potassium Level 3.7 3.5-5.1 mmol/L Chloride Level 106 98-107 mmol/L Carbon Dioxide Level 26 20-31 mmol/L Anion Gap 8 5-15 Blood Urea Nitrogen 6 L 9-23 mg/dL Creatinine 0.59 0.550-1.02 mg/dL Glomerular Filtration Rate Calc 104 >90 mL/min BUN/Creatinine Ratio 10.2 10.0-20.0 Serum Glucose 93 74-106 mg/dL Calcium Level 8.8 8.7-10.4 mg/dL Assessment/Plan Assessment/Plan Assessment Failure to thrive Multiple pressure ulcer wounds Multiple sclerosis Bed ridden Metabolic encephalopathy Hyperthyroid Plan Admit the patient to Med surge to the hospitalist Blood cultures pending Rocephin Resume home medications Thyroid panel pending, hold levothyroxine Plan discussed with: Other My Orders Orders - ANKUR TELLEZ Procedure Category Date Status Time Levetiracetam Tablet PHA 11/17/24 In Process (Keppra Tablet) 22:00 Levothyroxine Tablet PHA 11/18/24 In Process (Synthroid Tablet) 06:00 Nifedipine Er PHA 11/18/24 In Process (Procardia Xl 10:00 Docusate Sodium PHA 11/17/24 In Process Capsule (Colace 22:00 * Cloud Engineer CONS 11/17/24 Transmitted Consult * Wound Consult CONS 11/17/24 Transmitted Basic Metabolic Panel LAB 11/18/24 Logged 04:00 Blood Culture EMILIANA 11/17/24 In Process 20:28 Ceftriaxone 1gm/50ml PHA 11/18/24 In Process D5w (Rocephin) 09:00 Admit ADMIT 11/17/24 Transmitted 20:28 Ondansetron Hcl PHA 11/17/24 In Process (Zofran) 20:30 Enoxaparin Sodium PHA 11/18/24 In Process (Lovenox) 10:00 Complete Blood Count LAB 11/18/24 Logged 04:00 Cardiac DIET 11/18/24 Transmitted Diet-2gna,Lofat,Lochol Breakfast Condition: Stable JESSICA 11/17/24 In Process 20:28 Acetaminophen Tablet PHA 11/17/24 In Process (Tylenol Tablet) 20:30 Bedrest With Bathroom JESSICA 11/17/24 In Process Privileg 20:28 Thyroid Panel LAB 11/18/24 Transmitted 02:46 Date of Service: Nov 17, 2024 Billing Provider: ANKUR TELLEZ Common Visit Codes: [id number] INP/OBS CARE (MOD) ANKUR TELLEZ Nov 18, 2024 02:53
[2024-11-18] MEDS: levETIRAcetam 500 MG TAB PO SCH (03:15)
[2024-11-18] MEDS: DOCUSATE SOD 100 MG CAP PO SCH (03:16)
[2024-11-18] MEDS ORDERED: CHOL20002 PO (05:48)
[2024-11-18] MEDS ORDERED: LEVO125T7 PO (05:48)
[2024-11-18] MEDS ORDERED: NIFE1TAB31 (05:48)
[2024-11-18] MEDS ORDERED: LEVE100020 PO (05:48)
[2024-11-18 05:55] LABS: Anion Gap 7 (5-15); Carbon Dioxide 26 mmol/L (20-31); Chloride 106 mmol/L (98-107); Potassium 3.6 mmol/L (3.5-5.1); Sodium 139 mmol/L (136-145)
[2024-11-18 05:56] LABS: Calcium 9.1 mg/dL (8.7-10.4)
[2024-11-18] MEDS ORDERED: LEVOTHYROXINE SODIUM 50 MCG TAB PO SCH (06:00)
[2024-11-18 06:01] LABS: Glucose 90 mg/dL (74-106)
[2024-11-18 06:07] LABS: Basophils # (auto) 0 10 ^3/uL (0-0.2); Basophils % (auto) 0.6 % (0.0-2.0); Eosinophils # (auto) 0 10 ^3/uL (0-0.8); Eosinophils % (auto) 0.3 % (0.0-7.0); Hematocrit 43.1 % (36.0-46.0); Lymphocytes % (auto) 29.6 % (10.0-50.0); Mean Corpuscular Hemoglobin 29.4 pg (28.0-32.0); Mean Corpuscular Hgb Conc. 32.6 g/dL (32.0-36.0); Monocytes # (auto) 0.5 10 ^3/uL (0-1.3); Monocytes % (auto) 14.1 % (0.0-12.0); Neutrophils # (auto) 1.8 10 ^3/uL (1.6-8.6); Neutrophils % (auto) 55.4 % (37.0-80.0); Nucleated Red Blood Cells % 0.3 %; Platelet Count (auto) 228 10^3/uL (140-450); Red Blood Cells 4.79 10^6/uL (4.0-5.20); Red Cell Distribution Width 14.8 % (11.8-14.3); White Blood Cell 3.3 10^3/uL (4.4-10.8)
[2024-11-18 07:02] LABS: BUN/Creatinine Ratio 10.2 (10.0-20.0); Blood Urea Nitrogen < 5 mg/dL (9-23)
[2024-11-18] MEDS: ENOXAPARIN SOD 40 MG/0.4 ML SYRINGE SC SCH (11:21)
[2024-11-18] MEDS: cefTRIAXone 1GM/50ML D5W 50 ML IV SCH (11:22)
[2024-11-18] MEDS: NIFEdipine ER 30 MG TAB PO SCH (11:22)
--- NOTE | 2024-11-18 14:29 | DVHPN2 ---
Assessment/Plan Assessment/Plan progress note 59 F with MS, nonverbal, hyperthyroid, dementia, HTN, seziures admitted for failure to thrive. seen during rounds, nonverbal, tracking. speech swallow eval. might need to use NGT however patient might not benefit from it. physical exam nonverbal tracking PERRLA MMM s1 s2 rrr clear breath sounds abdomen soft nontender no LE edema R foot wound lasb ekg imaging reviewed assessment and plan acute? metabolic toxic encep MS unspecified subtype hyperthyroid dementia? HTN seizures on keppra pyuria get collateral from caregiver on baseline otherwise labs relatively okay, will treat pyuria ISO ams speech and swallow resume home meds ss for dispo plannign diet NPO dvt ppx lovenox Plan discussed with: Other Date of Service: Nov 18, 2024 Billing Provider: WILBUR BETHEA MD Common Visit Codes: [id number] INP/OBS CARE(HIGH) WILBUR BETHEA MD Nov 18, 2024 14:29
[2024-11-19] VITALS (8 sets, daily range): BP systolic 106–159; BP diastolic 73–87; PULSE 68–96; RESP 17–20; TEMP 97.6–99.4; O2SAT 94–100
[2024-11-19 05:59] LABS: Basophils # (auto) 0 10 ^3/uL (0-0.2); Basophils % (auto) 0.3 % (0.0-2.0); Eosinophils # (auto) 0 10 ^3/uL (0-0.8); Eosinophils % (auto) 0.6 % (0.0-7.0); Hematocrit 40.1 % (36.0-46.0); Hemoglobin 13.5 g/dL (12.2-16.2); Lymphocytes # (auto) 1.9 10 ^3/uL (0.4-5.4); Lymphocytes % (auto) 48.5 % (10.0-50.0); Mean Corpuscular Hgb Conc. 33.6 g/dL (32.0-36.0); Mean Corpuscular Volume 89.3 fL (80.0-100.0); Monocytes # (auto) 0.5 10 ^3/uL (0-1.3); Monocytes % (auto) 11.3 % (0.0-12.0); Neutrophils # (auto) 1.6 10 ^3/uL (1.6-8.6); Neutrophils % (auto) 39.3 % (37.0-80.0); Nucleated Red Blood Cells % 0.2 %; Platelet Count (auto) 236 10^3/uL (140-450); Red Blood Cells 4.49 10^6/uL (4.0-5.20); Red Cell Distribution Width 14.3 % (11.8-14.3)
[2024-11-19 06:03] LABS: Chloride 105 mmol/L (98-107); Sodium 139 mmol/L (136-145)
[2024-11-19 06:04] LABS: Anion Gap 8 (5-15); Calcium 8.9 mg/dL (8.7-10.4); Carbon Dioxide 26 mmol/L (20-31)
[2024-11-19 06:09] LABS: Glucose 84 mg/dL (74-106); Potassium 3.5 mmol/L (3.5-5.1)
[2024-11-19 06:10] LABS: Magnesium 2.1 mg/dL (1.6-2.6)
[2024-11-19 06:12] LABS: Phosphorus 2.6 mg/dL (2.4-5.1)
[2024-11-19 06:21] LABS: BUN/Creatinine Ratio 9.1 (10.0-20.0); Blood Urea Nitrogen < 5 mg/dL (9-23)
[2024-11-19 10:40] LABS: Folate (Folic Acid) 8.29 ng/mL (>5.38)
--- NOTE | 2024-11-19 16:24 | DVHPN2 ---
Assessment/Plan Assessment/Plan progress note 59 F with MS, nonverbal, hyperthyroid, dementia, HTN, seziures admitted for failure to thrive. nonverbal, tracking. seen during rounds, possible voluntary feeding cessation. treating UTI physical exam nonverbal tracking PERRLA MMM s1 s2 rrr clear breath sounds abdomen soft nontender no LE edema R foot wound lasb ekg imaging reviewed assessment and plan acute? metabolic toxic encep MS unspecified subtype hyperthyroid dementia? HTN seizures on keppra pyuria get collateral from caregiver on baseline otherwise labs relatively okay, will treat pyuria ISO ams speech and swallow resume home meds ss for dispo plannign diet NPO dvt ppx lovenox Plan discussed with: Patient My Orders Orders - WILBUR BETHEA MD Procedure Category Date Status Time Notify Provider NOTICE 11/18/24 Transmitted Malnutrition 16:44 Nutritional NOURISH 11/18/24 Transmitted Supplements 16:44 Increase Calorie NOURISH 11/18/24 Transmitted Intake 16:44 Cleanse Wound With JESSICA 11/18/24 In Process Wound Clean 14:23 Specialty Bed Mattress ORDERS 11/18/24 Transmitted 10:45 * Dietary Consult CONS 11/18/24 Transmitted 14:23 Urine Bacterial EMILIANA 11/19/24 Logged Culture 15:46 Date of Service: Nov 19, 2024 Billing Provider: WILBUR BETHEA MD Common Visit Codes: [id number] INP/OBS CARE(HIGH) WILBUR BETHEA MD Nov 19, 2024 16:24
[2024-11-20] VITALS (8 sets, daily range): BP systolic 120–140; BP diastolic 71–90; PULSE 74–96; RESP 16–20; TEMP 97.7–99.2; O2SAT 95–100
[2024-11-20 06:48] LABS: Anion Gap 9 (5-15); Carbon Dioxide 26 mmol/L (20-31); Chloride 105 mmol/L (98-107); Sodium 140 mmol/L (136-145)
[2024-11-20 06:49] LABS: Calcium 9.2 mg/dL (8.7-10.4)
[2024-11-20 06:54] LABS: Glucose 78 mg/dL (74-106)
[2024-11-20 06:55] LABS: Basophils # (auto) 0 10 ^3/uL (0-0.2); Basophils % (auto) 0.2 % (0.0-2.0); Blood Urea Nitrogen 6 mg/dL (9-23); Eosinophils # (auto) 0 10 ^3/uL (0-0.8); Eosinophils % (auto) 0.7 % (0.0-7.0); Hematocrit 40.9 % (36.0-46.0); Hemoglobin 13.5 g/dL (12.2-16.2); Lymphocytes # (auto) 2.3 10 ^3/uL (0.4-5.4); Lymphocytes % (auto) 51.4 % (10.0-50.0); Mean Corpuscular Hgb Conc. 33.1 g/dL (32.0-36.0); Mean Corpuscular Volume 90.4 fL (80.0-100.0); Monocytes # (auto) 0.4 10 ^3/uL (0-1.3); Monocytes % (auto) 8.2 % (0.0-12.0); Neutrophils # (auto) 1.8 10 ^3/uL (1.6-8.6); Neutrophils % (auto) 39.5 % (37.0-80.0); Nucleated Red Blood Cells % 0.2 %; Platelet Count (auto) 215 10^3/uL (140-450); Red Blood Cells 4.52 10^6/uL (4.0-5.20); Red Cell Distribution Width 14.4 % (11.8-14.3); White Blood Cell 4.6 10^3/uL (4.4-10.8)
[2024-11-20 08:07] LABS: Free Thyroxine Index 3.2 (1.2-4.9)
--- NOTE | 2024-11-20 15:50 | DVHPN2 ---
Assessment/Plan Assessment/Plan progress note 59 F with MS, nonverbal, hyperthyroid, dementia, HTN, seziures admitted for failure to thrive. nonverbal, tracking. seen during rounds, improved feeding. per caregiver, patient baseline eats really well. pyuria clears up, UA clean but after iv abx, also cultrues NGTD. physical exam nonverbal tracking PERRLA MMM s1 s2 rrr clear breath sounds abdomen soft nontender no LE edema R foot wound lasb ekg imaging reviewed assessment and plan acute? metabolic toxic encep MS unspecified subtype hyperthyroid dementia? HTN seizures on keppra pyuria sacral wound stage 2 get collateral from caregiver on baseline otherwise labs relatively okay, will treat pyuria ISO ams speech and swallow resume home meds emch soft and ensure diet mech soft, ensure dvt ppx lovenox Plan discussed with: Other My Orders Orders - WILBUR BETHEA MD Procedure Category Date Status Time Urine Bacterial EMILIANA 11/19/24 In Process Culture 15:46 Date of Service: Nov 20, 2024 Billing Provider: WILBUR BETHEA MD Common Visit Codes: [id number] INP/OBS CARE(HIGH) WILBUR BETHEA MD Nov 20, 2024 15:50
[2024-11-21] VITALS (7 sets, daily range): BP systolic 94–135; BP diastolic 54–89; PULSE 53–90; RESP 17–20; TEMP 97.4–99.3; O2SAT 92–100
[2024-11-21 07:20] LABS: Hemoglobin 13.4 g/dL (12.2-16.2); Mean Corpuscular Hemoglobin 30.2 pg (28.0-32.0); Mean Corpuscular Hgb Conc. 33.6 g/dL (32.0-36.0); Platelet Count (auto) 218 10^3/uL (140-450); Red Blood Cells 4.44 10^6/uL (4.0-5.20); Red Cell Distribution Width 14.9 % (11.8-14.3); White Blood Cell 5.2 10^3/uL (4.4-10.8)
[2024-11-21 07:26] LABS: Anion Gap 8 (5-15); Carbon Dioxide 29 mmol/L (20-31); Chloride 104 mmol/L (98-107); Potassium 4.3 mmol/L (3.5-5.1); Sodium 141 mmol/L (136-145)
[2024-11-21 07:27] LABS: Calcium 9.4 mg/dL (8.7-10.4)
[2024-11-21 07:31] LABS: Glucose 90 mg/dL (74-106)
[2024-11-21 07:32] LABS: BUN/Creatinine Ratio 24.6 (10.0-20.0); Blood Urea Nitrogen 14 mg/dL (9-23)
[2024-11-21 07:37] LABS: Band Neutrophils % (manual) 0; Basophils % (manual) 0 (0.0-2.0); Blast Cells 0; Eosinophils % (manual) 0 (0-7); Metamyelocytes % 0; Myelocytes % 0; Promyelocytes % 0; Reactive Lymphocytes 0
[2024-11-21 08:38] LABS: Lymphocytes % (manual) 58 (10.0-50.0); Monocytes % (manual) 6 (0-12); Platelet Estimate Adequate
--- NOTE | 2024-11-21 15:15 | DVHPN2 ---
Assessment/Plan Assessment/Plan progress note 59 F with MS, nonverbal, hyperthyroid, dementia, HTN, seziures admitted for failure to thrive. nonverbal, tracking. seen during rounds, answering yes no question today. improving. c/w assisted feeding physical exam nonverbal tracking PERRLA MMM s1 s2 rrr clear breath sounds abdomen soft nontender no LE edema R foot wound lasb ekg imaging reviewed assessment and plan acute? metabolic toxic encep MS unspecified subtype hyperthyroid dementia? HTN seizures on keppra pyuria sacral wound stage 2 get collateral from caregiver on baseline otherwise labs relatively okay, will treat pyuria ISO ams speech and swallow resume home meds emch soft and ensure diet mech soft, ensure dvt ppx lovenox Plan discussed with: Patient Date of Service: Nov 21, 2024 Billing Provider: WILBUR BETHEA MD Common Visit Codes: [id number] INP/OBS CARE(HIGH) IWLBUR BETHEA MD Nov 21, 2024 15:14
[2024-11-22] VITALS (9 sets, daily range): BP systolic 134–155; BP diastolic 72–98; PULSE 76–99; RESP 15–17; TEMP 98.4–99.1; O2SAT 99–100
[2024-11-22] MEDS ORDERED: CEPH250C PO (08:23)
[2024-11-22] MEDS ORDERED: POLY335015 PO (08:23)
--- NOTE | 2024-11-22 11:24 | DVHDS2 ---
Discharge Summary Date of Admission Nov 17, 2024 at 20:28 Date of Discharge: Nov 22, 2024 Labs/Diagnostic Data: Laboratory Results Test 11/21/24 05:33 11/20/24 04:50 11/19/24 05:15 11/18/24 15:31 White Blood Count 5.2 10^3/uL (4.4-10.8) Red Blood Count 4.44 10^6/uL (4.0-5.20) Hemoglobin 13.4 g/dL (12.2-16.2) Hematocrit 40.0 % (36.0-46.0) Mean Corpuscular Volume 90.0 fL (80.0-100.0) Mean Corpuscular Hemoglobin 30.2 pg (28.0-32.0) Mean Corpuscular Hemoglobin Concent 33.6 g/dL (32.0-36.0) Red Cell Distribution Width 14.9 % (11.8-14.3) Platelet Count 218 10^3/uL (140-450) Mean Platelet Volume 7.2 fL (6.9-10.8) Neutrophils (%) (Auto) % (37.0-80.0) Lymphocytes (%) (Auto) % (10.0-50.0) Monocytes (%) (Auto) % (0.0-12.0) Basophils (%) (Auto) % (0.0-2.0) Neutrophils # (Auto) 10 ^3/uL (1.6-8.6) Lymphocytes # (Auto) 10 ^3/uL (0.4-5.4) Monocytes # (Auto) 10 ^3/uL (0-1.3) Differential Total Cells Counted 100.0 (100) Neutrophils % (Manual) 36 (37.0-80.0) Band Neutrophils % (Manual) 0 Lymphocytes % (Manual) 58 (10.0-50.0) Monocytes % (Manual) 6 (0-12) Eosinophils % (Manual) 0 (0-7) Basophils % (Manual) 0 (0.0-2.0) Metamyelocytes % (manual) 0 Myelocytes % (Manual) 0 Promyelocytes % (Manual) 0 Blast Cells % (Manual) 0 Reactive Lymphocytes 0 Platelet Estimate Adequate Sodium Level 141 mmol/L (136-145) Potassium Level 4.3 mmol/L (3.5-5.1) Chloride Level 104 mmol/L (98-107) Carbon Dioxide Level 29 mmol/L (20-31) Anion Gap 8 (5-15) Blood Urea Nitrogen 14 mg/dL (9-23) Creatinine 0.57 mg/dL (0.550-1.02) Glomerular Filtration Rate Calc 105 mL/min (>90) BUN/Creatinine Ratio 24.6 (10.0-20.0) Serum Glucose 90 mg/dL (74-106) Calcium Level 9.4 mg/dL (8.7-10.4) Eosinophils (%) (Auto) 0.7 % (0.0-7.0) Eosinophils # (Auto) 0 10 ^3/uL (0-0.8) Basophils # (Auto) 0 10 ^3/uL (0-0.2) Nucleated Red Blood Cells 0.2 % Phosphorus Level 2.6 mg/dL (2.4-5.1) Magnesium Level 2.1 mg/dL (1.6-2.6) Vitamin B12 Level 407 pg/mL (211-911) Folic Acid 8.29 ng/mL (>5.38) Treponema pallidum Antibody Non-reactive (Negative) HIV (1&2) Antibody Negative (Negative) Test 11/18/24 05:16 11/17/24 21:37 11/17/24 16:45 11/17/24 16:37 Free Thyroxine Index 3.2 (1.2-4.9) Thyroxine (T4) 10.0 ug/dL (4.5-12.0) Triiodothyronine (T3) Uptake 32 % (24-39) Lactic Acid Level 1.0 mmol/L (0.4-2.0) Troponin I High Sensitivity 9 ng/L (</=34) Thyroid Stimulating Hormone (TSH) 0.01 uIU/mL (0.55-4.78) Urine Color Light-yellow (Yellow) Urine Clarity Turbid (Clear) Urine pH 6.5 (5.0-9.0) Urine Specific [place] 1.013 (1.001-1.035) Urine Protein Negative (Negative) Urine Ketones Negative (Negative) Urine Blood Trace /uL (Negative) Urine Nitrite Negative (Negative) Urine Bilirubin Negative (Negative) Urine Urobilinogen Normal mg/dL (Negative) Urine Leukocyte Esterase Negative /uL (Negative) Urine RBC 9 /hpf (0 - 4) Urine Microscopic WBC 2 /HPF (0-5) Urine Squamous Epithelial Cells Few /hpf (<5) Urine Bacteria Few /hpf (None Seen) Urine Mucus Few (None Seen) Urine Glucose Normal mg/dL (Normal) Other Laboratory Tests 11/21/24 05:33 Brief Hx & Hospital Course: 59 F with MS, nonverbal, hyperthyroid, dementia, HTN, seziures admitted for failure to thrive. nonverbal, tracking. collateral received from family,. UA relatively clear but visually pyuric in admission, treated as UTI, improved after ABX. ss consult done. discussed with tech ed/woodshop teacher and pt will be discharged home today. referral sent for sacral wound graft Condition at Discharge: Good Final Diagnosis/Problems List AMS, symptomatic pyuria, sacral wound Discharge Disposition: Home Discharge Instruct/Medications Diet: Consistent carbohydrate, Cardiac 2g Na,low cholest Activity: No Restrictions, As Tolerated Discharge Statement: "Patient was advised to return to the ER or call 911 if any headaches, dizziness, shortness of breath, chest pain, abdominal pain, bleeding, fevers, or worsening of medical condition. Patient was counseled about treatment plan, medications, possible side effects, patientverbalized understanding. All questions were answered to the best of my ability. This discharge took greater then 30 minutes in planning, reviewing documentation, counseling the patient, and discussing with other team members." ASSESSMENT ASSESSMENT Assessment acute metabolic toxic encep likely UTI MS unspecified subtype hyperthyroid dementia? HTN seizures on keppra pyuria sacral wound stage 2 Date of Service: Nov 22, 2024 Billing Provider: WILBUR BETHEA MD Common Visit Codes: [id number] DISCH DAY >30min WILBUR BETHEA MD Nov 22, 2024 11:24
[2024-11-25 20:06] LABS: Vitamin B1, Whole Blood 60.3 nmol/L (66.5-200.0)
== END 2024-11-22 23:00 | disposition home or self-care (01) | DRG 689 ==
LOC: EDBD 15:21 → ER 15:21 → OVERFLOW 20:28 → CENTRAL 11-18 05:25
PROVIDERS: ADMIT Student in an Organized Health Care Education/Training Program; ATTEND Student in an Organized Health Care Education/Training Program
DX: N39.0 Urinary tract infection, site not specified (principal); G92.8 Other toxic encephalopathy; L89.152 Pressure ulcer of sacral region, stage 2; E05.90 Thyrotoxicosis, unspecified without thyrotoxic crisis or storm; F03.90 Unspecified dementia, unspecified severity, without behavioral disturbance, psychotic disturbance, mood disturbance, and anxiety; R56.9 Unspecified convulsions; I10 Essential (primary) hypertension; R62.7 Adult failure to thrive; G35 Multiple sclerosis; Z74.01 Bed confinement status; Z98.891 History of uterine scar from previous surgery; Z79.899 Other long term (current) drug therapy; Z68.20 Body mass index [BMI] 20.0-20.9, adult
CPT/HCPCS: 36415; 70450; 71045; 80048; 81001; 82607; 82746; 83605; 83735; 84100; 84425; 84443; 84484; 85007; 85025; 85027; 86703; 86780; 87040; 87086; 93005; 96361; 96365; G0378